=== PATIENT | male | born 1950 | race Caucasian/White ===

== ENCOUNTER 2018-05-26 06:59 | Day surgery (SDC) | payer MEDICAID, MEDICARE ==
[~2018-05-26] VITALS: Ht 154.9 cm; Wt 62.9 kg
[2018-05-26] VITALS (10 sets, daily range): BP systolic 118–154; BP diastolic 63–83; PULSE 56–74; RESP 10–19; Ht 154.9 cm; Wt 62.9 kg
[~2018-05-26 06:59] MED LIST: BETA50GE2 TP; CEFAZOLIN 2 GM/50 ML (PMX) 50 ML IVPB ONE; SOD CHLORIDE 0.9% 1,000 ML IV SCH
[2018-05-26] MEDS ORDERED: CEFAZOLIN 2 GM/50 ML (PMX) 50 ML IVPB ONE (07:00)
[2018-05-26] MEDS ORDERED: SOD CHLORIDE 0.9% 1,000 ML IV SCH (07:00)
--- NOTE | 2018-05-26 08:16 | PREAC ---
Date/Time of Note Date/Time of Note DATE: 05/26/18 TIME: 08:15 Anesthesia Eval and Record Evaluation Time Pre-Procedure Interview DATE: 05/26/18 TIME: 08:15 Age 67 Sex male NPO: 8 hrs Preoperative diagnosis BACK MASS ON THE RIGHT Planned procedure EXCISION BACK MASS Past Medical History Past Medical History: None Surgery & Anesthesia Issues No known issue Meds Anticoagulation: No Beta Omar within 24 hr: No Reason Beta Omar not given: Pt. not on B-Omar Discontinued Scripts Betamethasone Dipropionate (Betamethasone Dipropionate) 50 Gm Gel..gm., 1 APPLIC TP QID, #1 UNIT 0.05% gel Prov:LALO CASTELLANOS [employer] 01/31/15 Current Medications Sodium Chloride 1,000 ml @ 75 mls/hr [id number] IV ; Start 05/26/18 at 07:00; Stop 05/26/18 at 20:19 Meds reviewed: Yes Allergies Coded Allergies: No Known Allergy (Unverified , 05/26/18) Allergies Reviewed: Yes Labs/Studies Labs Reviewed: Reviewed by anesthesiologist test: N/A Studies: ECG (NL), CXR (NAPD) Pre-procedure Exam Last vitals Vital Signs Date Temp Pulse Resp B/P (MAP) Pulse Ox O2 O2 Flow FiO2 Time Delivery Rate 05/26/18 97.3 56 16 154/70 99 Room Air 07:59 (98) Airway: Adequate mouth opening, Adequate thyromental dist Mallampati: Mallampati II Teeth: Normal Lung: Normal Heart: Normal ASA Physical Status ASA physical status: 1 Emergency: None Planned Anesthetic General/MAC: MAC Planned Pain Management Parenteral pain med Pre-operative Attestations Prior to commencing anesthesia and surgery, the patient was re-evaluated, there was verification of: *The patient's identity *The results of appropriate recent lab work and preoperative vital signs *The above evaluation not changing prior to induction *Anesthetic plan, risk benefits, alternative and complications discussed with patient/family; questions answered; patient/family understands, accepts and wishes to proceed. Paul Cantu M.D. May 26, 2018 08:16
[2018-05-26] MEDS ORDERED: LIDOCAINE 100 MG SYRINGE ONE (08:24)
[2018-05-26] MEDS ORDERED: PROPOFOL 20 ML ONE (08:24)
[2018-05-26] MEDS ORDERED: MIDAZOLAM 1 MG/ML 2 ML INJ ONE (08:25)
[2018-05-26] MEDS ORDERED: ONDANSETRON 4 MG INJ ONE (08:25)
[2018-05-26] MEDS ORDERED: FENTAnyl 50 MCG/ML VIAL ONE ×2 (08:25→08:44)
[2018-05-26] MEDS ORDERED: EPHEDrine SULFATE 50 MG/5 ML SYG IV PRN (08:30)
[2018-05-26] MEDS ORDERED: TRIMETHOBENZAMIDE 100 MG/ML VIAL IM PRN (08:30)
[2018-05-26] MEDS ORDERED: HYDROmorphONE 1 MG/5 ML IV SYRINGE IV PRN ×3 (08:30)
[2018-05-26] MEDS ORDERED: hydrALAzine 20 MG INJ IV PRN (08:30)
[2018-05-26] MEDS ORDERED: MIDAZOLAM 1 MG/ML 2 ML INJ IV PRN (08:30)
[2018-05-26] MEDS ORDERED: MEPERIDINE 25 MG INJ IV PRN (08:30)
[2018-05-26] MEDS ORDERED: OXYCODONE/ACETAMINOPHEN (5/325) TAB PO PRN ×2 (08:30)
[2018-05-26] MEDS ORDERED: IPRATROPIUM (NEB) 0.5 MG/2.5 ML AMP HHN PRN (08:30)
[2018-05-26] MEDS ORDERED: LABETALOL HCL 20MG INJ IV PRN (08:30)
[2018-05-26] MEDS ORDERED: DIPHENHYDRAMINE 50 MG INJ IV PRN (08:30)
[2018-05-26] MEDS ORDERED: ONDANSETRON 4 MG INJ IV PRN (08:30)
[2018-05-26] MEDS ORDERED: FENTAnyl 50 MCG/ML VIAL IV PRN ×3 (08:30)
[2018-05-26] MEDS ORDERED: ALBUTEROL 0.083% (NEB) 2.5 MG/3 ML AMP HHN PRN (08:30)
[2018-05-26] MEDS ORDERED: LIDOCAINE 2% (MDV) 20 ML INJ ONE (08:34)
[2018-05-26] MEDS ORDERED: BUPIVACAINE 0.5% (SDV) 30 ML INJ ONE (08:34)
[2018-05-26] MEDS ORDERED: CEFAZOLIN 1 GM INJ ONE (08:46)
[2018-05-26] MEDS ORDERED: NALOXONE (0.4 MG/ML) INJ ONE (08:58)
--- NOTE | 2018-05-26 08:58 | OPR ---
Date/Time of Note Date/Time of Note DATE: 05/26/18 TIME: 08:56 Operative Report Procedure Date: May 26, 2018 Preoperative Diagnosis right back mass Postoperative Diagnosis same Operation/Procedure Performed 1. excision of right back mass 7 cm mass 8 cm incision 2. localized adjacent tissue transfer with the use of skin flaps 16 sq cm defect of the back 3. therapeutic injection of subcutaneous local anesthesia Surgeon see signature line Dental Laboratory Technician Apprentice none Anesthesia Type: general Estimated Blood Loss: 0 - 10 ml's Transfusion none Specimen right back mass Grafts/Implants none Complications none Pt Condition Post Procedure: stable Indications This is a 67-year-old male with a symptomatic painful right back mass. He requires surgical excision. Risks alternatives benefits and percent were disc ussed with patient. Patient expressed understanding consents to the operation. Procedure Description Patient is taken to the OR and prepped and draped in usual sterile fashion. Surgical time was performed. IV antibiotics were given. Therapeutic subcutaneous local anesthesia was infiltrated all around the mass and along the incision of the mass. 15 blade is used to make an incision in elliptical that is encompassing the mass. Dissection with cautery was carried onto the mass and the mass was taken off the deep subcutaneous tissues. Good hemostasis established. Due to tissue defect localized adjacent to his transfer with these of skin flaps was performed. Multilayer closure with interrupted 3-0 Vicryl and skin hailey. Dry dressings were applied. Oswaldo SANTOYO May 26, 2018 08:58
[2018-05-26] MEDS ORDERED: HYDROCODONE/APAP (5/325) TAB PO ONE (09:00)
--- NOTE | 2018-05-26 09:10 | PAC ---
Date/Time of Note Date/Time of Note DATE: 05/26/18 TIME: 09:09 Post-Anesthesia Notes Post-Anesthesia Note Last documented vital signs Vital Signs Date Temp Pulse Resp B/P (MAP) Pulse Ox O2 O2 Flow FiO2 Time Delivery Rate 05/26/18 97.3 56 16 154/70 99 Room Air 07:59 (98) Activity: WNL Respiratory function: WNL Cardiovascular function: WNL Mental status: Baseline Pain reasonably controlled: Yes Hydration appropriate: Yes Nausea/Vomiting absent: Yes Paul Cantu M.D. May 26, 2018 09:10
== END 2018-05-26 10:50 | disposition home or self-care (01) ==
LOC: SDS 06:59
PROVIDERS: ATTEND Surgery
DX: L72.0 Epidermal cyst (principal)
CPT/HCPCS: 14001; 71045; 88307; J0690; J2001; J2250; J2310; J2405; J3010